=== PATIENT | male | born 1940 | race Caucasian/White ===

== ENCOUNTER 2017-11-21 11:33 | Emergency (ER) | payer MEDICARE, BC ==
--- NOTE | 2017-11-21 11:53 | EDM.PDOC ---
Scribed by Ruth Liu 11/21/17 1153 for Tim Juarez MD ED HPI GENERAL MEDICAL PROBLEM - General Chief Complaint: Laceration Stated Complaint: FINGER CUT [id number] Time Seen by Provider: 11/21/17 11:39 Source of Information: Reports: Patient, RN, RN Notes Reviewed History Limitations: Reports: No Limitations - History of Present Illness INITIAL COMMENTS - FREE TEXT/NARRATIVE: Patient presented to ER with complaint of a cut to his left thumb. He cut it with a kitchen knife just prior to arrival. No other injury. Tetanus was 2 years ago. Onset: Today Location: Reports: Upper Extremity, Left Quality: Reports: Ache Severity: Mild Improves with: Reports: None Worsens with: Reports: None Associated Symptoms: Reports: No Other Symptoms - Related Data Allergies Allergy/AdvReac Type Severity Reaction Status Date / Time No Known Allergies Allergy Verified 11/21/17 11:39 Social & Family History - Family History Family Medical History: Noncontributory Review of Systems - Review of Systems Review Of Systems: ROS reveals no pertinent complaints other than HPI. ED EXAM, GENERAL - Physical Exam Exam: See Below Exam Limited By: No Limitations General Appearance: Alert, WD/WN, No Apparent Distress Head: Atraumatic, Normocephalic Respiratory/Chest: No Respiratory Distress Extremities: Normal Capillary Refill, Other (0.8cm superficial flap laceration to distal left thumb, no active bleeding, no FB) Neurological: Alert, Oriented, No Motor/Sensory Deficits Psychiatric: Normal Mood Skin Exam: Warm, Dry ED TRAUMA EXTREMITY PROCEDURES - Laceration/Wound Repair Left Distal Finger Lac/Wound Length In cm: 0.8 (left distal thumb) Appearance: Superficial, Clean, Other (flap) Distal NVT: Neuro & Vascular Intact Anesthetic Type: Other (None) Saline Irrigation (cc's): 1,000 Exploration/Debridement/Repair: Wound Explored, In a Bloodless Field, Explored to Base Closed With: Dermabond Drain Placement: No Sterile Dressing Applied: None Tetanus Status Addressed: Yes Complications: No Departure - Departure Time of Disposition: 11:51 Disposition: Home, Self-Care 01 Condition: Good Clinical Impression: Laceration of left thumb Qualifiers: Encounter type: initial encounter Damage to nail status: without damage Foreign body presence: without foreign body Qualified Code(s): S61.012A - Laceration without foreign body of left thumb without damage to nail, initial encounter - Discharge Information Instructions: Stitches, [place], or Adhesive Wound Closure, [id number] Forms: ED Department Discharge Additional Instructions: Leave the skin glue in place until it comes off on it's own. Follow up in clinic if any further problems. I have read and agree with the documentation that has been completed regarding this visit. By signing this record, I attest that the documentation was completed in my physical presence and is an accurate record of the encounter.
== END 2017-11-21 12:07 | disposition home or self-care (01) ==
LOC: DL.ED 11:33
DX: S61.012A Laceration without foreign body of left thumb without damage to nail, initial encounter (principal); W26.0XXA Contact with knife, initial encounter
CPT/HCPCS: 12001; 99282; 99283

== ENCOUNTER 2020-11-10 07:34 | Emergency (ER) | payer MEDICARE, BC ==
[2020-11-10] MEDS ORDERED: Bacitracin Oint 1 GM U/D Packet TOP ONE (07:47)
--- NOTE | 2020-11-10 08:27 | CR ---
PROCEDURE INFORMATION: Exam: XR Left Knee Exam date and time: 11/10/2020 8:04 AM Age: 80 years old Clinical indication: Injury or trauma; Fall; Blunt trauma; Knee; Left; Injury date: 11/10/2020 TECHNIQUE: Imaging protocol: XR Left knee. Views: 3 views. COMPARISON: No relevant prior studies available. FINDINGS: Bones/joints: No significant joint space narrowing. Bones normally mineralized. Bilateral chondrocalcinosis suggesting CPPD. No fracture. No joint effusion. Soft tissues: Normal. 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 No acute findings
--- NOTE | 2020-11-10 08:29 | CR ---
PROCEDURE INFORMATION: Exam: XR Right Elbow Exam date and time: 11/10/2020 8:02 AM Age: 80 years old Clinical indication: Injury or trauma; Fall; Blunt trauma (contusions or hematomas); Elbow; Right; Injury date: 11/10/2020; Additional info: Fall, swelling pain TECHNIQUE: Imaging protocol: XR Right elbow. Views: 3 or more views. COMPARISON: No relevant prior studies available. FINDINGS: Bones/joints: In a moderately displaced fracture of the olecranon. There appears to be severe posterior soft tissue and or olecranon bursal swelling/effusion. Soft tissues: See "Bones/joints" finding. IMPRESSION: Acute moderately displaced olecranon fracture with prominent periarticular soft tissue swelling.
--- NOTE | 2020-11-10 09:08 | EDM.PDOC ---
ED HPI GENERAL MEDICAL PROBLEM - General Chief Complaint: Upper Extremity Injury/Pain Stated Complaint: FELL AND HURT ARM AND LEG [id number] Time Seen by Provider: 11/10/20 07:45 Source of Information: Reports: Patient History Limitations: Reports: No Limitations - History of Present Illness INITIAL COMMENTS - FREE TEXT/NARRATIVE: ED ambulatory with c/o pain to right elbow and left knee. Reports stumbling over broken cement at [employer] and fell to knees and elbow. Did not hit head. no loss of consciousness. Swelling to right elbow. Right Elbow Pain Score (Numeric/FACES): 2 - Related Data Allergies Allergy/AdvReac Type Severity Reaction Status Date / Time No Known Allergies Allergy Verified 11/10/20 07:52 Home Meds: Home Meds Fluticasone Propionate [Flonase] 2 spray .ROUTE BEDTIME 11/21/17 [History] Lisinopril 1 tab PO DAILY 11/21/17 [History] Loratadine [Claritin] 1 cap PO DAILY 11/21/17 [History] Lutein/Minerals/Vit A,C & E [Ocuvite] 1 tab PO DAILY 11/21/17 [History] Simvastatin [Zocor] 1 tab PO BEDTIME 11/21/17 [History] Tamsulosin HCl [Flomax] 1 cap PO DAILY 11/21/17 [History] Past Medical History Cardiovascular History: Reports: High Cholesterol, Hypertension Respiratory History: Reports: Other (See Below) Other Respiratory History: seasonal allergies Genitourinary History: Reports: BPH Social & Family History - Family History Family Medical History: No Pertinent Family History - Tobacco Use Tobacco Use Status *Q: Never Tobacco User - Recreational Drug Use Recreational Drug Use: No Review of Systems - Review of Systems Review Of Systems: Comprehensive ROS is negative, except as noted in HPI. ED EXAM, GENERAL - Physical Exam Exam: See Below Exam Limited By: No Limitations General Appearance: Alert, Mild Distress Eye Exam: Bilateral Eye: EOMI, PERRL Ears: Hearing Grossly Normal Nose: Normal Inspection Throat/Mouth: Normal Inspection Head: Atraumatic, Normocephalic Neck: Normal Inspection Respiratory/Chest: No Respiratory Distress, Lungs Clear, Normal Breath Sounds Cardiovascular: Normal Peripheral Pulses, Regular Rate, Rhythm GI/Abdominal: Normal Bowel Sounds, Soft Extremities: Other (abrasions bilateral knees, greater left. bleeding controll ed, Limited ROM right elbow, joint effusion No warmth. Pulses intact. ). No: Normal Range of Motion Neurological: Alert, Oriented, Normal Cognition Psychiatric: Normal Affect Skin Exam: Warm, Dry, Intact, Normal Color ED TRAUMA EXTREMITY PROCEDURES - Splinting Right Upper Extremity Pre-Procedure NV Status: Normal Post-Procedure NV Status: Normal Splint Material: Sling Splint Design: Posterior Applied & Form Fitted By: Provider Provider Post-Splint Application NV Check: NV Status Normal Complications: No Course - Vital Signs Last Recorded V/S: Last Vital Signs Temp 96.7 F L 11/10/20 07:47 Pulse 72 11/10/20 07:47 Resp 18 11/10/20 07:47 BP 176/76 H 11/10/20 07:47 Pulse Ox 100 11/10/20 07:47 - Orders/Labs/Meds Labs: Laboratory Tests 11/10/20 11/10/20 Range/Units 09:12 09:12 WBC 14.4 H (5.0-10.0) 10^3/uL RBC 4.90 (4.6-6.2) 10^6/uL Hgb 14.2 (14.0-18.0) g/dL Hct 42.6 (40.0-54.0) % MCV 86.9 (80-100) fL MCH 29.0 (27.0-34.0) pg MCHC 33.3 (33.0-35.0) g/dL Plt Count 280 (150-450) 10^3/uL Neut % (Auto) 74.3 (42.2-75.2) % Lymph % (Auto) 16.2 L (20.5-50.1) % Gilchrist % (Auto) 7.5 (2-8) % Eos % (Auto) 1.8 (1.0-3.0) % Baso % (Auto) 0.2 (0.0-1.0) % Sodium 133 L (136-145) mmol/L Potassium 3.9 (3.5-5.1) mmol/L Chloride 98 (98-107) mmol/L Carbon Dioxide 26 (21-32) mmol/L Anion Gap 12.9 (7-13) mEq/L BUN 17 (7-18) mg/dL Creatinine 0.93 (0.70-1.30) mg/dL Est Cr Clr Drug Dosing 73.66 mL/min Estimated GFR (MDRD) > 60 BUN/Creatinine Ratio 18.3 (No establ ref range) Glucose 108 H (70-99) mg/dL Calcium 9.4 (8.5-10.1) mg/dL Total Bilirubin 0.6 (0.2-1.0) mg/dL AST 18 (15-37) U/L ALT 36 (16-63) U/L Alkaline Phosphatase 96 (46-116) U/L Total Protein 6.8 (6.4-8.2) g/dL Albumin 3.7 (3.4-5.0) g/dL Globulin 3.1 Albumin/Globulin Ratio 1.2 Meds: Medications Discontinued Medications Generic Name Dose Route Start Last Admin Trade Name Freq PRN Reason Stop Dose Admin Bacitracin 2 dose 11/10/20 07:47 11/10/20 08:03 Bacitracin Oint 1 Gm U/D Packet TOP 11/10/20 07:48 2 dose ONETIME ONE Administration Departure - Departure Time of Disposition: 09:28 Disposition: Home, Self-Care 01 Condition: Good Clinical Impression: Fall, Abrasion Olecranon fracture Qualifiers: Encounter type: initial encounter Fracture type: closed Laterality: right Quali fied Code(s): S52.021A - Displaced fracture of olecranon process without intraarticular extension of right ulna, initial encounter for closed fracture - Discharge Information *PRESCRIPTION DRUG MONITORING PROGRAM REVIEWED*: No *COPY OF PRESCRIPTION DRUG MONITORING REPORT IN PATIENT DONITA: No Instructions: How To Use a Sling, [id number], Olecranon Fracture Referrals: PCP,Not In Area [Primary Care Provider] - Forms: ED Department Discharge Additional Instructions: ice elevate splint and sling follow up with ortho clinic [phone] Call Thursday to schedule with Dr Junior this week tylenol 650mg alternating with ibuprofen every 4 hours for mild pain hydrocodone 5/325 one every 6 hours as needed for moderate pain. urgent follow up if increased pain to arm, hand or wrist, cool extremity mupirocin ointment to abrasions twice daily until healed. cover with dressing during day and open to air at night. Sepsis Event Note (ED) - Evaluation Sepsis Screening Result: No Definite Risk
[2020-11-10 09:39] LABS: ANION GAP 12.9 mEq/L (7-13); CHLORIDE,CL 98 mmol/L (98-107); SODIUM,NA 133 mmol/L (136-145)
== END 2020-11-10 10:00 | disposition home or self-care (01) ==
LOC: DL.ED 07:34
DX: S52.021A Displaced fracture of olecranon process without intraarticular extension of right ulna, initial encounter for closed fracture (principal); I10 Essential (primary) hypertension; Z88.1 Allergy status to other antibiotic agents; Z88.5 Allergy status to narcotic agent; Z88.0 Allergy status to penicillin; W18.39XA Other fall on same level, initial encounter
CPT/HCPCS: 36415; 73080-RT; 73562-LT; 80053; 85025; 99283

== ENCOUNTER 2020-11-14 08:55 | Emergency (ER) | payer MEDICARE, BC ==
--- NOTE | 2020-11-14 09:04 | EDM.PDOC ---
ED HPI GENERAL MEDICAL PROBLEM - General Chief Complaint: Wound Recheck Stated Complaint: FELL / INJURED KNEE Time Seen by Provider: 11/14/20 09:04 Source of Information: Reports: Patient, Old Records, RN, RN Notes Reviewed History Limitations: Reports: No Limitations - History of Present Illness INITIAL COMMENTS - FREE TEXT/NARRATIVE: Pt presents to ER for wound check of the left knee. He was seen here in ER on 11/10/20 after he fell at [employer], injured/scraped left knee and fractured the right elbow. Pt has been applying Bactroban but the abrasion white and stings. Denies redness or purulent drainage. He has not followed up in clinic. He has an appointment with orthopedic clinic tomorrow for the elbow. 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 Medication(s) (Bactroban ointment) - Related Data Allergies Allergy/AdvReac Type Severity Reaction Status Date / Time Penicillins Allergy Cannot Verified 11/14/20 09:05 Remember Home Meds: Home Meds Fluticasone Propionate [Flonase] 2 spray .ROUTE BEDTIME 11/21/17 [History] Lisinopril 1 tab PO DAILY 11/21/17 [History] Loratadine [Claritin] 1 cap PO DAILY 11/21/17 [History] Lutein/Minerals/Vit A,C & E [Ocuvite] 1 tab PO DAILY 11/21/17 [History] Simvastatin [Zocor] 1 tab PO BEDTIME 11/21/17 [History] Tamsulosin HCl [Flomax] 1 cap PO DAILY 11/21/17 [History] Past Medical History Cardiovascular History: Reports: High Cholesterol, Hypertension Respiratory History: Reports: Other (See Below) Other Respiratory History: seasonal allergies Genitourinary History: Reports: BPH Musculoskeletal History: Reports: Fracture (Right elbow) Social & Family History - Family History Family Medical History: No Pertinent Family History - Living Situation & Occupation Occupation: Retired ED ROS GENERAL - Review of Systems Review Of Systems: Comprehensive ROS is negative, except as noted in HPI. ED EXAM, SKIN/RASH Exam: See Below Exam Limited By: No Limitations General Appearance: Alert, WD/WN, No Apparent Distress Head: Atraumatic, Normocephalic Respiratory/Chest: No Respiratory Distress Extremities: Normal Range of Motion, Pedal Edema (Left > Rt), Other (Left anterior knee has a 7cm x 5cm superficial abrasion, no sign of infection, redness, or drainage). No: Joint Swelling, Carlton's Sign, Increased Warmth Neurological: Alert, Oriented Psychiatric: Normal Mood Skin: Warm, Dry Course - Vital Signs Last Recorded V/S: Last Vital Signs Temp 98.0 F 11/14/20 09:10 Pulse 81 11/14/20 09:10 Resp 18 11/14/20 09:10 BP 163/79 H 11/14/20 09:10 Pulse Ox 100 11/14/20 09:10 - Orders/Labs/Meds Meds: Medications Discontinued Medications Generic Name Dose Route Start Last Admin Trade Name Freq PRN Reason Stop Dose Admin Lidocaine HCl 30 gm 11/14/20 09:09 Lidocaine 5% Oint 35.44 Gm Tube TOP 11/14/20 09:10 ONETIME ONE Departure - Departure Time of Disposition: 09:15 Disposition: Home, Self-Care 01 Condition: Good Clinical Impression: Abrasion, left knee, subsequent encounter, Encounter for wound re-check - Discharge Information *PRESCRIPTION DRUG MONITORING PROGRAM REVIEWED*: Not Applicable *COPY OF PRESCRIPTION DRUG MONITORING REPORT IN PATIENT DONITA: Not Applicable Instructions: Abrasion, [id number] Forms: ED Department Discharge Additional Instructions: Lidocaine Ointment 5%: Mix a pea sized amount with the Mupirocin Ointment and apply to the knee twice a day. Sepsis Event Note (ED) - Focused Exam Vital Signs: Vital Signs Temp Pulse Resp BP Pulse Ox 11/14/20 09:10 98.0 F 81 18 163/79 H 100
[2020-11-14] MEDS ORDERED: Lidocaine 5% Oint 35.44 GM Tube TOP ONE (09:09)
== END 2020-11-14 09:22 | disposition home or self-care (01) ==
LOC: DL.ED 08:55
DX: S80.212D Abrasion, left knee, subsequent encounter (principal); E78.00 Pure hypercholesterolemia, unspecified; I10 Essential (primary) hypertension; R60.0 Localized edema; Z48.00 Encounter for change or removal of nonsurgical wound dressing; Z79.899 Other long term (current) drug therapy; Z88.0 Allergy status to penicillin; W18.39XD Other fall on same level, subsequent encounter
CPT/HCPCS: 99282; A9270